=== PATIENT | male | born 2000 | race Caucasian/White ===

== ENCOUNTER 2023-01-28 18:21 | Emergency (ER) | payer OTHER ==
[2023-01-28 19:50] LABS: CORONAVIRUS COVID-19 NAA NEGATIVE (NEGATIVE); INFLUENZA A NAA NEGATIVE (NEGATIVE); INFLUENZA B NAA NEGATIVE (NEGATIVE)
== END 2023-01-28 21:50 | disposition home or self-care (01) ==
LOC: MW.ED 18:21
DX: H66.92 Otitis media, unspecified, left ear (principal); Z20.822 Contact with and (suspected) exposure to COVID-19; Z91.048 Other nonmedicinal substance allergy status
CPT/HCPCS: 0240U; 99283

== ENCOUNTER 2023-12-15 06:02 | Emergency (ER) | payer BC ==
[2023-12-15 06:40] LABS: APPEARANCE,URINE SLT CLOUDY; BILIRUBIN,URINE NEGATIVE (NEGATIVE); COLOR,URINE YELLOW; GLUCOSE,URINE NEGATIVE (NEGATIVE); KETONES,URINE TRACE mg/dL (NEGATIVE); LEUKOCYTE ESTERASE,URINE NEGATIVE (NEGATIVE); NITRITE,URINE NEGATIVE (NEGATIVE); OCCULT BLOOD,URINE MODERATE (NEGATIVE); PROTEIN,URINE NEGATIVE (NEGATIVE); UROBILINOGEN,URINE 0.2 EU/dL (<2.0)
[2023-12-15 06:46] LABS: BACTERIA,URINE FEW (NEGATIVE); EPITHELIAL CELLS,URINE RARE (NONE-FEW); RBC,URINE 60-70 (0-2/HPF); WBC,URINE 0-4 (0-5/HPF)
[2023-12-15] MEDS ORDERED: Sodium Chloride 0.9% 2.5 ML Syringe FLUSH PRN (07:03)
[2023-12-15] MEDS ORDERED: Sodium Chloride 0.9% 10 ML Syringe FLUSH PRN (07:03)
[2023-12-15 07:07] LABS: BASOPHILS ABSOLUTE AUTO 0.02 K/uL (0.00-0.20); BASOPHILS PERCENT AUTO 0.2 % (0.0-1.0); EOSINOPHILS ABSOLUTE AUTO 0.15 K/uL (0.00-0.45); EOSINOPHILS PERCENT AUTO 1.6 % (0.0-6.0); HEMATOCRIT 40.8 % (42.0-52.0); HEMOGLOBIN 14.7 g/dL (14.0-18.0); IMMATURE GRAN ABSOLUTE AUTO 0.03 K/uL (0.00-0.05); IMMATURE GRAN PERCENT AUTO 0.3 % (0.0-0.4); LYMPHOCYTES ABSOLUTE AUTO 2.06 K/uL (1.00-4.80); LYMPHOCYTES PERCENT AUTO 21.9 % (24.0-44.0); MEAN CORPUSCULAR HEMOGLOBIN 31.2 pg (28.0-32.0); MEAN CORPUSCULAR VOLUME 86.6 fL (83.0-99.0); MEAN PLATELET VOLUME 8.7 fL (9.4-12.4); MONOCYTES ABSOLUTE AUTO 0.85 K/uL (0.00-0.80); PLATELET COUNT,PLT 272 K/uL (150-400); RED BLOOD CELL COUNT 4.71 M/uL (4.52-5.90); WHITE BLOOD CELL COUNT,WBC 9.41 K/uL (3.9-11.3)
[2023-12-15 07:27] LABS: CARBON DIOXIDE,CO2 27.5 mmol/L (21.0-32.0); CREATININE 1.3 mg/dL (0.8-1.3); EST CRCL DRUG DOSING (CG) 100.99 mL/min; POTASSIUM,K 4.8 mmol/L (3.5-5.1)
== END 2023-12-15 10:01 | disposition home or self-care (01) ==
LOC: MW.ED 06:02
DX: N20.0 Calculus of kidney (principal)
CPT/HCPCS: 36415; 74176; 74176-26; 80048; 81001; 85025; 99283; 99284